=== PATIENT | female | born 1960 | race Caucasian/White ===

== ENCOUNTER 2018-11-08 14:30 | Emergency (ER) | payer OTHER ==
[~2018-11-08] VITALS: Ht 154.9 cm; Wt 61.2 kg
[2018-11-08 14:30] VITALS: BP_SYST 157
[2018-11-08] MEDS ORDERED: KETOROLAC TROMETHAMINE 30 MG VIAL IVP ONE (15:00)
[2018-11-08] MEDS ORDERED: CYCLOBENZAPRINE HCL 10 MG TABLET (FLEXERIL) PO ONE (15:00)
[2018-11-08 16:08] VITALS: BP_SYST 148
== END 2018-11-08 16:08 | disposition home or self-care (01) ==
LOC: SED 14:30
DX: S20.219A Contusion of unspecified front wall of thorax, initial encounter (principal); M79.10 Myalgia, unspecified site; Z88.0 Allergy status to penicillin; V89.2XXA Person injured in unspecified motor-vehicle accident, traffic, initial encounter; Y93.89 Activity, other specified; Y92.410 Unspecified street and highway as the place of occurrence of the external cause; Y99.8 Other external cause status
CPT/HCPCS: 71045; 72040; 72072; 72100; 96374; 99284; J1885